=== PATIENT | female | born 1940 | race Caucasian/White ===

== ENCOUNTER 2024-08-21 14:08 | Emergency (ER) | payer MEDICARE, SELFPAY ==
[2024-08-21] VITALS (39 sets, daily range): BP systolic 126–152; BP diastolic 72–103; PULSE 80–145; TEMP 36.5; O2SAT 87–100; BMI 29.3
[2024-08-21 15:21] LABS: Basophils Percent Auto 0.2 % (0.2-2.0); Eosinophils Percent Auto 0.2 % (0.9-7.0); Hematocrit 31.8 % (36.0-48.0); Hemoglobin 10.4 g/dL (12.0-16.0); Immature Granulocytes Abs Auto 0.08 10^3/uL (0.00-0.03); Immature Granulocytes Pct Auto 0.8 % (0.0-0.5); Lymphocytes Absolute Auto 1.7 10^3/uL (1.2-3.8); Lymphocytes Percent Auto 17.1 % (20.5-60.0); Mean Corpuscular HGB Conc 32.7 g/dL (29.9-35.2); Mean Corpuscular Hemoglobin 31.1 pg (26.7-34.0); Mean Corpuscular Volume 95.2 fL (81.0-99.0); Mean Platelet Volume 9.6 fL (9.5-13.5); Monocytes Absolute Auto 0.9 10^3/uL (0.3-0.8); Monocytes Percent Auto 8.4 % (1.7-12.0); Neutrophils Absolute Auto 7.4 10^3/uL (1.4-6.5); Neutrophils Percent Auto 73.3 % (43.0-75.0); Platelet Count 208 10^3/uL (150-450); Red Blood Count 3.34 10^6/uL (4.20-5.40); Red Cell Distribution Width 15.1 % (11.0-15.0); White Blood Count 10.1 10^3/uL (4.0-11.0)
--- NOTE | 2024-08-21 15:22 | ECG_ITS ---
[facility] Test Date: 2024-08-21 Pat Name: ASAF HUNG Department: Room: - Gender: Female Supervisor [employer]: : 1940 Requested By: ERASMO ADAMS Order Number: [id number] Reading MD: PETE SHAH Measurements Intervals [place] Rate: 123 P: -[id number] KS: -[id number] QRS: 90 QRSD: 112 T: 34 QT: 360 QTc: 433 Interpretive Statements 34079 Atrial fibrillation with rapid ventricular response 2450 Right bundle branch block 8102 Low QRS voltage in chest leads 9150 abnormal ECG Electronically Signed On 08-21-2024 20:49:24 EST by PETE SHAH
--- NOTE | 2024-08-21 15:31 | ED_ITS ---
HPI - GI Bleed General Chief complaint: GI Bleed Stated complaint: RECTAL BLEEDING WEAKNESS Time Seen by Provider: 08/21/24 15:00 Source: patient and family (Grandson) Mode of arrival: walk-in Limitations: no limitations History of Present Illness HPI Narrative: 83-year-old female presents to the emergency department with with complaint of rectal bleeding. Initially was bright red, now has become a little darker. States the blood is mixed with stool and not separate. She is on Eliquis. She denies any fever, chills, nausea, vomiting, diarrhea, abdominal pain, prior history of GI bleeding. Denies worsening dizziness (states chronic over the past 3-4 years), lightheadedness, shortness of breath. She has prior surgical history of cholecystectomy, appendectomy, hysterectomy. Quality:?As above Severity:?Moderate Timing:?As above, intermittent Context: Normal setting and activity? Modifying factors:?None Associated symptoms: None Related Data Home Medications ?Medication ?Instructions ?Recorded ?Confirmed alendronate 70 mg tablet 70 mg PO QWEEK 08/21/24 08/21/24 apixaban 5 mg tablet (Eliquis) 5 mg PO Q12H 08/21/24 08/21/24 atorvastatin 40 mg tablet 40 mg PO DAILY 08/21/24 08/21/24 carvedilol 25 mg tablet 12.5 mg PO Q12H 08/21/24 08/21/24 diltiazem HCl 180 mg 180 mg PO Q24H 08/21/24 08/21/24 capsule,extended release 24 hr (Cartia XT) furosemide 40 mg tablet 40 mg PO DAILY 08/21/24 08/21/24 levothyroxine 50 mcg tablet 50 mcg PO DAILY 08/21/24 08/21/24 oxybutynin chloride 15 mg 15 mg PO DAILY 08/21/24 08/21/24 tablet,extended release 24 hr pantoprazole 40 mg tablet,delayed 40 mg PO DAILY 08/21/24 08/21/24 release potassium chloride 10 mEq 10 meq PO DAILY 08/21/24 08/21/24 tablet,extended release trazodone 50 mg tablet 50 mg PO BEDTIME 08/21/24 08/21/24 Allergies Allergy/AdvReac Type Severity Reaction Status Date / Time codeine Allergy Severe Hives Verified 08/21/24 14:12 Review of Systems ROS Narrative CONST: Denies fever, chills RESP: Denies cough, shortness of breath CV: Denies chest pain, palpitations GI: + blood in stool. Denies abd pain, nausea, vomiting : Denies dysuria, flank pain MS: Denies back pain, myalgias SKIN: Denies color change, rash NEURO: Denies numbness, weakness PSYCHIATRIC: Denies confusion, agitation PFSH PFSH Medical History Vertigo ?R42 - Dizziness and giddiness (ICD-10) CAD (coronary artery disease) ?I25.10 - Atherosclerotic heart disease of [place] coronary artery without angina pectoris (ICD-10) Heart failure ?I50.9 - Heart failure, unspecified (ICD-10) Surgical History History of hysterectomy ?Z90.710 - Acquired absence of both cervix and uterus (ICD-10) History of cholecystectomy ?Z90.49 - Acquired absence of other specified parts of digestive tract (ICD- 10) History of appendectomy ?Z90.49 - Acquired absence of other specified parts of digestive tract (ICD- 10) Social History Little interest or pleasure in doing things: not at all Feeling down, depressed, or hopeless: not at all Exam Narrative Exam Narrative: Vital signs reviewed Nurses notes noted CONST: Nontoxic, well appearing, well nourished, in no distress.? No diaphoresis.?? HENT: normocephalic, atraumatic, moist mucous membrane, no abnormalities of the nose noted, hearing normal EYES: pale appearing conjunctiva, no apparent discharge bilat NECK: normal appearance CV: normal rate, regular rhythm, no murmur RESP: normal effort, speaking in complete sentences. Lung sounds clear and equal bilat.? No wheezes, rales, rhonchi GI: normal bowel sounds, soft, no distension, nontender : no CVA tenderness. On chaperoned rectal examination, stool color dark maroon on glove that tested positive on Hemoccult slide MS: no edema, tenderness SKIN: + pallor NEURO: A&Ox 3, no focal findings PSYCH: normal mood, affect Constitutional Vital Signs, click to edit/add: Last Vital Signs Temp 97.7 F 08/21/24 14:12 Pulse 120 H 08/21/24 20:00 Resp 12 08/21/24 20:00 BP 149/72 H 08/21/24 20:00 Pulse Ox 99 08/21/24 19:50 O2 Del Method Room Air 08/21/24 14:12 Course Consultations Consultation #1: [facility]. Called and spoke with Dr. Mustafa at [facility] with regards to the patient. Faber patient needed a tertiary care center, possible need for IR evaluation of the GI Bleeding Time: 16:45 Consultation #2: Patient discussed with Dr. Dietrich at [facility] in [place] who will accept the patient. Time: 17:45 Vital Signs Vital signs: Vital Signs Temperature 97.7 F 08/21/24 14:12 Pulse Rate 80 08/21/24 14:12 Respiratory Rate 16 08/21/24 14:12 Blood Pressure 126/98 H 08/21/24 14:12 Pulse Oximetry 96 08/21/24 14:12 Oxygen Delivery Method Room Air 08/21/24 14:12 Temperature 97.7 F 08/21/24 14:12 Pulse Rate 120 H 08/21/24 20:00 Respiratory Rate 12 08/21/24 20:00 Blood Pressure 149/72 H 08/21/24 20:00 Pulse Oximetry 99 08/21/24 19:50 Oxygen Delivery Method Room Air 08/21/24 14:12 MDM - GI Bleed MDM Narrative Medical decision making narrative: This is a pleasant 83-year-old female who presents to the emergency department for evaluation of blood in stool. Denies any associated symptoms. On arrival, afebrile, tachycardic otherwise vital signs stable On exam, nontoxic, well appearing patient, in no apparent distress. She does have some pale conjunctiva. Heart rate tachycardic, irregularly irregular rate and rhythm. Lung sounds clear and equal bilaterally. Abdomen soft, nontender. No CVA tenderness. On chaperoned rectal examination, there was dark maroon- colored stool on glove that tested palliative on Hemoccult card. EKG reveals A-fib with RVR. Patient has chronic history of this. She is on Cardizem, Eliquis. IV access obtained, lab work was sent. Labs reveal no leukocytosis. H&H were 10.4 and 31.8. Patient's prior records were reviewed from [facility] with last CBC 2 years ago showing H&H of 12.2 and 37.1. Today, no thrombocytopenia, electrolyte imbalance. She does have ZAID with BUN of 344 and creatinine of 1.31. [facility] laboratory results from 5 months ago show BUN of 19 and creatinine of 0.82. She was given to 20 mg boluses of Cardizem with good overall control of heart rate between 90 and 110. Favor blood loss anemia, GI bleeding, ZAID, A-fib with RVR Acute abdomen less likely based on history and physical exam. She denies any pain. There is no tenderness. History and Record Review Discussion with independent historian: Blood work from [facility] as mentioned in MDM narrative above Management Discussion with another healthcare provider:see course above Independent interpretation Telemetry: a-fib with rvr Additional Tests and Interventions ECG, IV fluids IV fluids: replacement Diagnostic testing considered but not performed: CT: no abd pain or tenderness Disposition/plan ED disposition: Plan: Patient will be discharged to transferred to [facility] in [place] as GI services not available at this facility.? Condition at time of disposition: stable. PLEASE NOTE: Portions of the medical record may have been produced using electronic registered nurse renal and may contain errors with respect to translation of words which may not have been identified prior to finalization of the chart. Medical Records Attestation: I reviewed the patient's medical records. Lab Data Attestation: I reviewed the patient's lab results. Labs: Lab Results 08/21/24 08/21/24 Range/Units 15:14 16:00 WBC 10.1 (4.0-11.0) 10^3/uL RBC 3.34 L (4.20-5.40) 10^6/uL Hgb 10.4 L (12.0-16.0) g/dL Hct 31.8 L (36.0-48.0) % MCV 95.2 (81.0-99.0) fL MCH 31.1 (26.7-34.0) pg MCHC 32.7 (29.9-35.2) g/dL RDW 15.1 H (11.0-15.0) % Plt Count 208 (150-450) 10^3/uL MPV 9.6 (9.5-13.5) fL Neut % (Auto) 73.3 (43.0-75.0) % Lymph % (Auto) 17.1 L (20.5-60.0) % Clare % (Auto) 8.4 (1.7-12.0) % Eos % (Auto) 0.2 L (0.9-7.0) % Baso % (Auto) 0.2 (0.2-2.0) % Neut # (Auto) 7.4 H (1.4-6.5) 10^3/uL Lymph # (Auto) 1.7 (1.2-3.8) 10^3/uL Clare # (Auto) 0.9 H (0.3-0.8) 10^3/uL Eos # (Auto) 0.0 (0.0-0.7) 10^3/uL Baso # (Auto) 0.0 (0.0-0.1) 10^3/uL Abs Immat Gran (auto) 0.08 H (0.00-0.03) 10^3/uL Imm/Tot Granulo (auto) 0.8 H (0.0-0.5) % Sodium 141 (136-145) mmol/L Potassium 4.1 (3.5-5.1) mmol/L Chloride 104 (98-107) mmol/L Carbon Dioxide 30.1 (21.0-32.0) mmol/L Anion Gap 11.0 BUN 44.0 H (7.0-18.0) mg/dL Creatinine 1.31 H (0.55-1.02) mg/dL Est GFR ( Amer) 47 L (>=60 mL/min/1.73m^2) Est GFR (Non-Af Amer) 39 L (>=60 mL/min/1.73m^2) BUN/Creatinine Ratio 33.6 Glucose 144 H (74-106) mg/dL Calcium 8.8 (8.5-10.1) mg/dL Magnesium 2.1 (1.8-2.4) mg/dL Total Bilirubin 0.7 (0.2-1.0) mg/dL AST 21 (15-37) U/L ALT 32 (14-59) U/L Alkaline Phosphatase 98 (46-116) U/L Total Protein 6.0 L (6.4-8.2) g/dL Albumin 3.3 L (3.4-5.0) g/dL Globulin 2.7 g/dL Albumin/Globulin Ratio 1.2 Stool Occult Blood Positive A Blood Type O Positive Antibody Screen Negative ECG Data Attestation: I personally reviewed and interpreted this ECG as follows: (EKG: a- fib with RVR. Rate of 123. no ischemia) ECG interpretation time: 15:20 Discharge Plan Discharge Chief Complaint: GI Bleed Clinical Impression: Lower gastrointestinal hemorrhage, ZAID (acute kidney injury) Atrial fibrillation Qualifiers: Atrial fibrillation type: paroxysmal Qualified Code(s): I48.0 - Paroxysmal atrial fibrillation Hypertension Qualifiers: Hypertension type: unspecified Qualified Code(s): I10 - Essential (primary) hypertension Patient Disposition: [facility] Time of Disposition Decision: 17:32 Discharge Location: [facility] Condition: Fair Mode of Transportation: EMS
[2024-08-21 15:42] LABS: Alanine Aminotransferase 32 U/L (14-59); Albumin Globulin Ratio 1.2; Albumin Level 3.3 g/dL (3.4-5.0); Alkaline Phosphatase 98 U/L (46-116); Aspartate Amino Transferase 21 U/L (15-37); BUN Creatinine Ratio 33.6; Bilirubin Total 0.7 mg/dL (0.2-1.0); Calcium 8.8 mg/dL (8.5-10.1); Carbon Dioxide 30.1 mmol/L (21.0-32.0); Chloride 104 mmol/L (98-107); Estimated GFR (African America 47 (>=60 mL/min/1.73m^2); Estimated GFR (Non-African Ame 39 (>=60 mL/min/1.73m^2); Globulin 2.7 g/dL; Glucose 144 mg/dL (74-106); Magnesium 2.1 mg/dL (1.8-2.4); Potassium 4.1 mmol/L (3.5-5.1); Sodium 141 mmol/L (136-145)
[2024-08-21] MEDS: DILTIAZEM HCL 25 MG/5 ML VIAL 20 MG IV ×2 (16:18→17:02)
[2024-08-21 16:35] LABS: Internal Control Within Normal Limits; Occult Blood Positive
[2024-08-21] MEDS: DILTIAZEM HCL 180 MG CAP.ER.24H PO (19:57)
[2024-08-21] MEDS: 0.9 % SODIUM CHLORIDE 1,000 ML 75 ML IV (19:57)
== END 2024-08-21 20:40 | disposition short-term general hospital (02) ==
PROVIDERS: Physician Assistant; Emergency Provider Emergency Medicine; PCP Family Medicine
DX: K92.2 Gastrointestinal hemorrhage, unspecified (principal); N17.9 Acute kidney failure, unspecified; Z79.01 Long term (current) use of anticoagulants; Z90.49 Acquired absence of other specified parts of digestive tract; Z90.710 Acquired absence of both cervix and uterus; Z79.899 Other long term (current) drug therapy; I48.0 Paroxysmal atrial fibrillation; I10 Essential (primary) hypertension
CPT/HCPCS: 36415; 80053; 83735; 85025; 86850; 86900; 86901; 93005; 96374; 96376; 99285; G0328